=== PATIENT | male | born 1940 | race Caucasian/White ===

== ENCOUNTER 2018-12-23 21:12 | Observation (INO) | payer MEDICARE ==
[2018-12-23 22:14] LABS: Bilirubin Negative (Negative); Blood, Urine Negative (Negative); Clarity Clear (Clear); Glucose, Urine (Dipstick) Normal (Negative); Leukocyte Negative Leu/uL (Negative); Nitrite Negative (Negative); Protein, Urine (Dipstick) 10 mg/dL (Neg-Trace)
[2018-12-23 22:28] LABS: Mean Corpuscular Volume 85.6 fL (78.0-98.0)
[2018-12-23 22:32] LABS: ALT (SGPT) 56 U/L (8-55); AST (SGOT) 55 U/L (5-34); Albumin 3.6 g/dL (3.4-4.8); Alkaline Phosphatase 96 U/L (40-110); Anion Gap 11 mmol/L (10-20); BUN (Urea Nitrogen) 18 mg/dL (8.4-25.7); Bilirubin, Total 1.3 mg/dL (0.2-1.2); Calc. Creatinine Clearance 0 mL/min (70-130); Calcium 8.6 mg/dL (7.8-10.44); Carbon Dioxide 24 mmol/L (23-31); Chloride 99 mmol/L (98-107); Estimated GFR-MDRD 39; Globulin 3.2 g/dL (2.4-3.5); Glucose 127 mg/dL (83-110); Potassium 4.1 mmol/L (3.5-5.1); Protein, Total 6.8 g/dL (5.8-8.1); Sodium 130 mmol/L (136-145)
[2018-12-23 22:53] LABS: #Eosinphils 0.4 thou/uL (0.0-0.7); #Lymphocytes 0.4 thou/uL (1.20-3.40); #Monocytes 0.2 thou/uL (0.11-0.59); #Neutrophils 3.5 thou/uL (1.40-6.50); %Basophils 0.4 % (0.0-1.0); %Eosinophils 9.6 % (0.0-10.0); %Lymphocytes 9.3 % (21.0-51.0); %Monocytes 3.3 % (0.0-10.0); %Neutrophils 77.4 % (42.0-75.0); Hemoglobin 13.9 g/dL (14.0-18.0); Mean Corpuscular HGB CONC 33.6 g/dL (32.0-36.0); Mean Corpuscular Hemoglobin 28.7 pg (27.0-31.0); Mean Platelet Volume 8.6 fL (7.4-10.4); Platelet Count 118 thou/uL (130-400); Platelet Morphology Comment Appears Adequate; RBC Distribution Width 12.8 % (11.5-14.5); Red Blood Cell (RBC) Count 4.85 mill/uL (4.70-6.10); White Blood Cell (WBC) Count 4.5 thou/uL (4.8-10.8)
[2018-12-23 22:55] LABS: CKMB 1.6 ng/mL (0-6.6)
--- NOTE | 2018-12-23 23:44 | RAD ---
EXAM: ONE VIEW CHEST: 12/23/18 HISTORY: Dyspnea. COMPARISON: 12/20/18. FINDINGS: Loop recorder is noted, projecting in the left hemithorax. Normal cardiac silhouette. Pulmonary vesse ls are slightly prominent. Costophrenic angles are clear. Patchy interstitial opacities, predominantl y in the lung bases may represent edema or infiltrate. There is fullness of the right hilum which may be due to enlarged central pulmonary artery. Limited evaluation due to portable technique and sligh t leftward rotation. IMPRESSION: 1. Increased interstitial opacity in the lung bases which may be due to edema or infiltrate. 2. Right hilar fullness which may represent a prominent central pulmonary artery. POS: [facility]
[2018-12-24 01:30] LABS: Troponin I 0.033 ng/mL (< 0.028)
[2018-12-24] MEDS: Sodium Chloride 0.9% 1,000 ML IV SCH ×3 (02:57→22:49)
[2018-12-24 03:17] VITALS: BMI 27.8
[2018-12-24 05:04] LABS: INR-International Normal Ratio 1.2; PTT 35.7 SEC (22.9-36.1); Prothrombin Time 15.3 SEC (12.0-14.7)
[2018-12-24 05:21] LABS: ALT (SGPT) 54 U/L (8-55); AST (SGOT) 52 U/L (5-34); Albumin 3.3 g/dL (3.4-4.8); Alkaline Phosphatase 86 U/L (40-110); Anion Gap 12 mmol/L (10-20); BUN (Urea Nitrogen) 15 mg/dL (8.4-25.7); Bilirubin, Total 1.3 mg/dL (0.2-1.2); Calc. Creatinine Clearance 51 mL/min (70-130); Calcium 8.1 mg/dL (7.8-10.44); Carbon Dioxide 21 mmol/L (23-31); Chloride 102 mmol/L (98-107); Estimated GFR-MDRD 47; Globulin 2.9 g/dL (2.4-3.5); Glucose 109 mg/dL (83-110); Potassium 4.1 mmol/L (3.5-5.1); Protein, Total 6.2 g/dL (5.8-8.1); Sodium 131 mmol/L (136-145)
[2018-12-24 05:26] LABS: Troponin I 0.042 ng/mL (< 0.028)
--- NOTE | 2018-12-24 05:29 | HP ---
PRIMARY CARE PHYSICIAN: Dr. Teague. PRIMARY FLOOR RENOVATOR: Dr. Valiente. CHIEF COMPLAINT: Generalized weakness with fall. HISTORY OF PRESENT ILLNESS: The patient is a 78-year-old male, who presented to the emergency room with above complaints. Over the last 2 months, the patient has been feeling generally weak and fatigued. He gets lightheaded especially on standing. He also had intermittent vertigo without any aggravating factor. He has also lost his appetite with approximately 20-pound weight loss over the last 2 months. He was evaluated by Dr. Valiente and currently has a Holter monitor. He also gets fatigue on mild exertion. He was recently diagnosed with a viral illness. He was scheduled for a stress test with Dr. Valiente today. He was found on the floor by his son and was subsequently brought to the emergency room. No fever, chills, or focal neurologic deficit reported. PAST MEDICAL HISTORY: Reviewed with the patient and none. PAST SURGICAL HISTORY: Reviewed with the patient and none. ALLERGIES: THE PATIENT HAD ALLERGIC REACTION TO PENICILLIN IN THE LAST MONTH. CURRENT HOME MEDICATIONS: The patient is on Bactrim, started by his primary care physician. SOCIAL HISTORY: The patient currently lives at home with his family. His son, Messi, is the decision maker. He is full code. No alcohol, tobacco, or drug use. FAMILY HISTORY: Brother with colon cancer. REVIEW OF SYSTEMS: All other review of systems was reviewed and were found negative. PHYSICAL EXAMINATION: VITAL SIGNS: In the emergency room, showed temperature of 100 with respirations of 18, pulse rate of 88, blood pressure of 118/60 with O2 saturation of 98% on room air. GENERAL: A 78-year-old male in no apparent distress. Denies any pain. HEENT: Head, atraumatic and normocephalic. Sclerae anicteric. Moist mucous membrane. No oral lesion. NECK: Supple. No JVD appreciated. No carotid bruit. LUNGS: Clear to auscultation bilaterally with scattered rhonchi and rales especially at posterior base. No accessory muscle use. HEART: S1, S2 present. Regular rate and rhythm. No rubs or gallops. ABDOMEN: Soft, nontender. Bowel sounds present. EXTREMITIES: No edema or calf tenderness. NEUROLOGIC: Grossly nonfocal. Moves all 4 extremities. PSYCHIATRIC: Alert, awake, and oriented x3. SKIN: Warm and dry. LYMPH NODES: No palpable lymph nodes in the neck. PERIPHERAL VASCULAR: Radial pulses palpable bilaterally. MUSCULOSKELETAL: No joint swelling tenderness. LABORATORY FINDINGS: Folic acid 2.2, vitamin B12 497. CRP is 3.72. Sodium of 130. It was 133 three days ago. Creatinine 1.71. LFTs were normal three days ago. It showed bilirubin of 1.3. Troponin was 0.032. Urinalysis was negative for wbc, bacteria. Hemoglobin 13.9, hematocrit 41.5, platelet of 118. EKG by my review showed sinus rhythm with nonspecific ST-T wave changes in the inferior leads. CT scan of the brain and cervical spine was negative. Chest x-ray by my review showed questionable infiltrate at the lung base. IMPRESSION: 1. Generalized weakness with fatigue, multifactorial. 2. Acute kidney injury versus chronic kidney disease stage 3. Baseline creatinine unknown. 3. Abnormal LFTs of unclear etiology. 4. Elevated troponin of unclear etiology. The patient was scheduled for a stress test. 5. Recent diagnosis of arrhythmia. The patient has a Holter monitor. 6. Folic acid deficiency. 7. Hyponatremia. PLAN: The patient will be monitored on the telemetry unit. His orthostatic vitals were positive after arrival to the floor. His standing blood pressure was 90/52 from 127/60. We will continue IV fluids. Physical Therapy consultation. Consult Cardiology. Recheck LFTs in a.m. Recheck troponin later on. Replace folic acid. We will hold Bactrim due to renal insufficiency. Right upper quadrant ultrasound has been done, report pending at this time. We will keep him n.p.o. past midnight for Cardiology evaluation. We will start him on doxycycline along with Omnicef for possible infiltrate. Plan of care was discussed with the patient in detail. He stated understanding. Job ID: [id number] [facility]
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
--- NOTE | 2018-12-24 08:01 | ULT ---
PRELIMINARY REPORT/[facility]/EMERGENCY AFTER HOURS PROCEDURE: PROCEDURE INFORMATION: Exam: US Abdomen Limited, Right Upper Quadrant Exam date and time: 12/23/2018 11:50 PM Clinical history: 78 years old, male; Pain and abnormal findings; Abnormal lab test; Elevated liver e nzymes; Abdominal pain; Localized; Right upper quadrant (ruq) TECHNIQUE: Imaging protocol: Real-time ultrasound of the abdomen with image documentation. Examination was focus ed on the right upper quadrant. COMPARISON: No relevant prior studies available. FINDINGS: Liver: Partially obscured. No masses. Gallbladder: There is a 3 mm echogenic focus with sonographic reverberation artifact is compatible wi th cholesterolosis. No gallstones. There is no gallbladder wall thickening. Sonographic Eli's sign is reportedly negative. Common bile duct: No stones. No dilation. Pancreas: Partilly obscured. Right kidney: An anechoic parapelvic cyst measures 2.5 x 2 x 1.9 cm. 6 mm in maximal echogenic focus with posterior shadowing is compatible with a nonsobstructive stone. No mass. No hydronephrosis. IMPRESSION: No acute findings. Thank you for allowing us to participate in the care of your patient. Dictated and Authenticated by: Yolanda Wright MD 12/24/2018 12:52 AM Central Time ([place] & [place]) FINAL REPORT EMERGENCY AFTER HOURS GALLBLADDER ULTRASOUND: I agree with the preliminary report provided by [facility]. POS: [facility]
[2018-12-24] MEDS: Aspirin 81 mg Enteric Coated Tablet PO SCH (08:59)
[2018-12-24] MEDS: Doxycycline 100 MG CAP PO SCH ×2 (09:00→20:32)
[2018-12-24] MEDS: Folic Acid 1 MG TAB PO SCH ×2 (09:00→20:32)
[2018-12-24] MEDS: Cefdinir 300 MG CAP PO SCH ×2 (09:00→20:32)
[2018-12-24] MEDS: Senokot S 8.6-50 MG TAB PO SCH ×2 (09:00→20:35)
[2018-12-24] MEDS ORDERED: ADENOSINE 60 MG/20 ML VIAL ONE (09:05)
[2018-12-24] MEDS: Saccharomyces boulardii 250 MG CAP PO SCH (11:04)
--- NOTE | 2018-12-24 16:34 | NM ---
EXAM: NM Cardiac Stress W EF WF PROVIDED CLINICAL HISTORY: Chest pain, history of arrhythmia. COMPARISON: None FINDINGS: Pharmacologic myocardial perfusion stress test was performed after the intravenous ministration of ad enosine. No significant reversible defect is seen between the stress and resting acquisitions. The gated image s demonstrate normal ventricular wall thickening. There is mild hypokinesis involving the ventricular septum. Calculated left ventricular ejection fraction is 66%. IMPRESSION: 1. Normal myocardial perfusion study without evidence of a reversible defect seen to suggest ischemia . 2. Mild hypokinesis at the septum. 3. Normal LVEF of 66%.
--- NOTE | 2018-12-24 19:12 | PRG ---
DATE OF SERVICE: 12/24/2018 SUBJECTIVE: Mr. Amin was recently seen in the office complaining mostly weakness and fatigue. He came into the hospital yesterday, mostly getting complaining of weakness, fatigue, appeared to be somewhat dehydrated and volume depleted. He feels better now after receiving intravenous fluids. OBJECTIVE: VITAL SIGNS: His blood pressure earlier this morning is 100/54, then 130/69; pulse is 96 and sinus with PACs. LUNGS: Clear. CARDIAC: Normal S1. Normal S2. ABDOMEN: Soft and nontender. EXTREMITIES: No edema. LABORATORY AND DIAGNOSTIC DATA: Stress test shows normal ejection fraction, no ischemia. Troponin levels were indeterminate at 0.042. He appeared dehydrated with a creatinine 1.46 and sodium 131, also his bilirubin is 1.3 and AST is 52. ASSESSMENT: So far, no evidence of significant cardiac disease. Echocardiogram, carotid Dopplers are pending for tomorrow. No further recommendations at present time. Dr. Segura to see this weekend. No cardiac etiology of his symptoms has been found. He does appear to be dehydrated. He thinks he had a "virus recently." Job ID: [id number]
[2018-12-25 05:20] LABS: #Eosinphils 0.2 thou/uL (0.0-0.7); #Lymphocytes 0.8 thou/uL (1.20-3.40); #Monocytes 0.2 thou/uL (0.11-0.59); #Neutrophils 1.4 thou/uL (1.40-6.50); %Basophils 0.2 % (0.0-1.0); %Lymphocytes 30.5 % (21.0-51.0); %Monocytes 7.8 % (0.0-10.0); %Neutrophils 55.5 % (42.0-75.0); Hemoglobin 13.1 g/dL (14.0-18.0); Mean Corpuscular HGB CONC 34.2 g/dL (32.0-36.0); Mean Corpuscular Hemoglobin 28.9 pg (27.0-31.0); Mean Corpuscular Volume 84.4 fL (78.0-98.0); Mean Platelet Volume 8.3 fL (7.4-10.4); Platelet Count 108 thou/uL (130-400); RBC Distribution Width 12.9 % (11.5-14.5); Red Blood Cell (RBC) Count 4.54 mill/uL (4.70-6.10); White Blood Cell (WBC) Count 2.6 thou/uL (4.8-10.8)
[2018-12-25 05:57] LABS: ALT (SGPT) 55 U/L (8-55); AST (SGOT) 38 U/L (5-34); Albumin 3.2 g/dL (3.4-4.8); Alkaline Phosphatase 83 U/L (40-110); Anion Gap 11 mmol/L (10-20); BUN (Urea Nitrogen) 14 mg/dL (8.4-25.7); Bilirubin, Total 1.4 mg/dL (0.2-1.2); Calc. Creatinine Clearance 67 mL/min (70-130); Calcium 8.2 mg/dL (7.8-10.44); Carbon Dioxide 21 mmol/L (23-31); Chloride 106 mmol/L (98-107); Estimated GFR-MDRD 63; Globulin 2.9 g/dL (2.4-3.5); Glucose 122 mg/dL (83-110); Potassium 4.2 mmol/L (3.5-5.1); Protein, Total 6.1 g/dL (5.8-8.1); Sodium 134 mmol/L (136-145)
[2018-12-25] MEDS: Sodium Chloride 0.9% 1,000 ML IV SCH (06:04)
--- NOTE | 2018-12-25 08:40 | ULT ---
BILATERAL CAROTID DUPLEX ULTRASOUND: HISTORY: Dizziness TECHNIQUE: Grayscale, color-flow and spectral Doppler ultrasound imaging of the extracranial carotid artery syst ems and vertebral arteries was performed bilaterally. FINDINGS: There is moderate atherosclerotic plaque involving the right common carotid artery, right carotid bul b and proximal right internal carotid artery. There is a focal area of stenosis involving the proximal right internal carotid artery. There is mild diffuse atherosclerotic plaque involving the le ft common carotid artery and proximal left internal carotid artery. The peak systolic velocity in the right ICA measures 164.1 cm/s. The peak systolic velocity in the r ight CCA measures 119.4 cm/s. The peak systolic velocity in the left ICA measures 83.9 cm/s. The peak systolic velocity in the l eft CCA measures 106.3 cm/s. The right IC/CC ration is1.37. The left IC/CC ratio is 0.79. Vertebral flow: antegrade, bilaterally. . IMPRESSION: 1. Moderate (50-69%) stenosis of right proximal internal carotid artery. 2. No hemodynamically significant stenosis of the left internal carotid artery.
[2018-12-25] MEDS: Aspirin 81 mg Enteric Coated Tablet PO SCH (09:04)
[2018-12-25] MEDS: Doxycycline 100 MG CAP PO SCH (09:04)
[2018-12-25] MEDS: Senokot S 8.6-50 MG TAB PO SCH (09:04)
[2018-12-25] MEDS: Saccharomyces boulardii 250 MG CAP PO SCH (09:04)
[2018-12-25] MEDS: Cefdinir 300 MG CAP PO SCH (09:04)
[2018-12-25] MEDS: Folic Acid 1 MG TAB PO SCH (09:04)
[2018-12-25 11:35] VITALS: TEMP 97.5
[2018-12-25 13:37] VITALS: BP 135/70
--- NOTE | 2018-12-25 14:42 | DIS ---
DATE OF ADMISSION: 12/24/2018 DATE OF DISCHARGE: 12/25/2018 DISCHARGE DIAGNOSES: 1. Acute kidney injury secondary to dehydration, improved. 2. Chronic kidney disease, stage 3. 3. Generalized weakness secondary to acute kidney injury. 4. Folic acid deficiency. 5. Hyponatremia, mild. 6. Moderate stenosis of the right internal carotid artery. CONSULTATIONS: Dr. Valiente with Cardiology Service. PERTINENT LABORATORY AND X-RAY FINDINGS: Sodium ranged between 130 to 134. Creatinine ranged between 1.12 to 1.71. Estimated GFR ranged between 39 to 63. Total bilirubin ranged between 1.3 to 1.4. AST ranged between 38 to 55, ALT ranged between 54 to 56. CRP 3.72. BNP 59. TSH 1.37. Serum cortisol level 13.4. CBC showed a white blood cell count ranging between 2.6 to 4.5, hemoglobin ranged between 13.1 to 13.9. Blood cultures x2 dated 12/24/2018, showed no growth to date. Abdominal ultrasound dated 12/23/2018, showed no acute process. Portable chest x-ray dated 12/23/2018, showed right hilar fullness of unclear significance. CT of the cervical spine dated 12/24/2018, showed no acute process. CT of the brain without contrast dated 12/24/2018, showed no acute intracranial process. Cardiolite stress test dated 12/24/2018, showed no evidence for reversible or fixed ischemia with calculated ejection fraction of 66%. Mild hypokinesis at the septum. Carotid Doppler study dated 12/25/2018, showed a moderate 50% to 69% stenosis of the right proximal internal carotid artery. No hemodynamically significant stenosis of the left internal carotid artery. HOSPITAL COURSE: The patient was observed on the telemetry unit after initially presenting with dizziness and fatigue. The patient underwent extensive evaluation with multiple imaging studies and laboratory evaluation showing evidence of acute kidney injury, likely due to volume depletion and dehydration. The patient with hyponatremia and improved sodium values in addition to creatinine with IV fluid hydration. The patient was also noted with mild orthostatic changes on vital sign assessment, improved with IV fluids. The patient underwent extensive cardiac evaluation showing no evidence of reversible or fixed ischemia with calculated ejection fraction of 66%. The patient was evaluated by the Cardiology Service without specific recommendations for adjustment to his current medication regimen. Likely patient's presentation multifactorial including volume depletion. The patient was cautioned regarding the need for adequate hydration. Telemetry monitoring showed no acute arrhythmia or dysrhythmia. The patient overall remained clinically stable. I have examined the patient at the time of discharge and discussed followup instructions. The patient verbalized understanding and in agreement, and ready for discharge on 12/25/2018. DISCHARGE MEDICATIONS: 1. Enteric-coated aspirin 81 mg p.o. daily. 2. Folic acid 1 mg p.o. b.i.d. FOLLOWUP: The patient may follow up with his primary care provider, Dr. Chase Mcnally within 7 days of discharge. CONDITION ON DISCHARGE: Stable. ACTIVITY: Ad-jakub. DIET: Regular. CODE STATUS: Full. DISPOSITION: Home on 12/25/2018. Job ID: [id number]
== END 2018-12-25 13:21 | disposition home or self-care (01) ==
LOC: ERS 21:12 → 2SW 12-24 00:11
PROVIDERS: ADMIT Internal Medicine; ATTEND Internal Medicine
DX: E86.0 Dehydration (principal); N17.9 Acute kidney failure, unspecified; E87.1 Hypo-osmolality and hyponatremia; I12.9 Hypertensive chronic kidney disease with stage 1 through stage 4 chronic kidney disease, or unspecified chronic kidney disease; N18.3 Chronic kidney disease, stage 3 (moderate); I49.9 Cardiac arrhythmia, unspecified; I49.1 Atrial premature depolarization; E78.00 Pure hypercholesterolemia, unspecified; R79.89 Other specified abnormal findings of blood chemistry; R53.82 Chronic fatigue, unspecified; Z88.0 Allergy status to penicillin
CPT/HCPCS: 70450; 71045; 72125; 76705; 78452; 80053 ×2; 81003; 82533; 82553; 83605; 83690; 83880; 84484 ×3; 85025; 85610; 85730; 86140; 87040; 93005; 93017; 93306; 93880; 96360; 96361; 97116; 97139; 97530; 99285; A9500; 36415; 36416; 84443; G0378; J0153

== ENCOUNTER 2019-01-03 10:03 | Emergency (ER) | payer MEDICARE ==
[2019-01-03] MEDS ORDERED: Adacel (T-DAP) 0.5 ML SYRINGE ONE (10:38)
[2019-01-03] MEDS ORDERED: Lidocaine 1% w/Epinephrine 1:100K 20 ML VIAL ONE (10:38)
[2019-01-03 10:55] LABS: INR-International Normal Ratio 1.1; Prothrombin Time 13.7 SEC (12.0-14.7)
[2019-01-03 10:56] LABS: PTT 30.4 SEC (22.9-36.1)
[2019-01-03 10:59] LABS: #Lymphocytes 0.6 thou/uL (1.20-3.40); #Monocytes 0.7 thou/uL (0.11-0.59); #Neutrophils 4.8 thou/uL (1.40-6.50); %Basophils 0.2 % (0.0-1.0); %Eosinophils 0.5 % (0.0-10.0); %Lymphocytes 9.3 % (21.0-51.0); %Monocytes 11.1 % (0.0-10.0); %Neutrophils 78.8 % (42.0-75.0); Hemoglobin 13.7 g/dL (14.0-18.0); Mean Corpuscular HGB CONC 32.8 g/dL (32.0-36.0); Mean Corpuscular Hemoglobin 28.9 pg (27.0-31.0); Mean Corpuscular Volume 87.9 fL (78.0-98.0); Mean Platelet Volume 8.1 fL (7.4-10.4); Platelet Count 152 thou/uL (130-400); Red Blood Cell (RBC) Count 4.73 mill/uL (4.70-6.10); White Blood Cell (WBC) Count 6.1 thou/uL (4.8-10.8)
[2019-01-03 11:21] LABS: ALT (SGPT) 52 U/L (8-55); AST (SGOT) 30 U/L (5-34); Albumin 3.8 g/dL (3.4-4.8); Alkaline Phosphatase 106 U/L (40-110); Anion Gap 14 mmol/L (10-20); BUN (Urea Nitrogen) 20 mg/dL (8.4-25.7); Calc. Creatinine Clearance 0 mL/min (70-130); Calcium 9.2 mg/dL (7.8-10.44); Carbon Dioxide 23 mmol/L (23-31); Chloride 102 mmol/L (98-107); Estimated GFR-MDRD 65; Globulin 3.2 g/dL (2.4-3.5); Glucose 136 mg/dL (83-110); Potassium 4.7 mmol/L (3.5-5.1); Sodium 134 mmol/L (136-145)
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
[2019-01-03] MEDS ORDERED: Iopamidol 370 76% 100 ML VIAL ONE (13:43)
== END 2019-01-03 14:10 | disposition home or self-care (01) ==
LOC: ERS 10:03
DX: S06.0X0A Concussion without loss of consciousness, initial encounter (principal); S22.41XA Multiple fractures of ribs, right side, initial encounter for closed fracture; S01.111A Laceration without foreign body of right eyelid and periocular area, initial encounter; V43.52XA Car driver injured in collision with other type car in traffic accident, initial encounter
CPT/HCPCS: 12013; 36415; 70450; 71260; 72125; 74177; 80053; 85025; 85610; 85730; 90471; 90715; J2001; Q9967

== ENCOUNTER 2022-04-04 15:42 | Inpatient (IN) | payer MEDICARE ==
[~2022-04-04 15:42] MED LIST: Heparin 10,000 UNITS/ 10 ML VIAL ONE
[2022-04-04] MEDS ORDERED: Ondansetron ODT 4 MG TAB PO PRN (18:18)
[2022-04-04] MEDS ORDERED: Senokot S 8.6-50 MG TAB PO PRN (18:18)
[2022-04-04] MEDS ORDERED: Guaifenesin DM 100-10/5 ML UDCUP PO PRN (18:18)
[2022-04-04] MEDS ORDERED: Bisacodyl 5 MG TAB PO PRN (18:18)
[2022-04-04] MEDS ORDERED: Ondansetron PF 4 MG/2 ML Vial IVP PRN (18:18)
[2022-04-04] MEDS ORDERED: Acetaminophen 650 MG Suppository PR PRN (18:18)
[2022-04-04] MEDS ORDERED: Acetaminophen 325 MG TAB PO PRN (18:18)
[2022-04-04] MEDS ORDERED: Bisacodyl 10 MG SUPP PR PRN (18:18)
[2022-04-04] MEDS ORDERED: HumaLOG 300 UNITS/3 ML VIAL SC PRN ×2 (18:27)
[2022-04-04] MEDS ORDERED: Dextrose 5% in Water 1,000 ML IV PRN (18:27)
[2022-04-04] MEDS ORDERED: Dextrose 50% Abboject 50 ML SYRINGE SLOW IVP PRN (18:27)
[2022-04-04] MEDS ORDERED: Sodium Chloride 0.9% 1,000 ML IV SCH (18:30)
[2022-04-04] MEDS ORDERED: hydrALAZINE 20 MG/ML VIAL SLOW IVP PRN (19:38)
[2022-04-04] MEDS: Metoprolol Tartrate 25 MG TAB PO SCH (20:31)
[2022-04-05 01:57] LABS: Bacteria/HPF None Seen HPF (None Seen); Bilirubin Negative (Negative); Blood, Urine Trace (Negative); CAUTI Indications for Culture Dysuria,urgency,freq; Clarity Clear (Clear); Glucose, Urine (Dipstick) Normal (Negative); Ketone, Urine Negative (Negative); Leukocyte Negative Leu/uL (Negative); Nitrite Negative (Negative); Protein, Urine (Dipstick) Negative (Neg-Trace); RBC/HPF 0-3 HPF (0-3); Specific Gravity, Urine 1.012 (1.002-1.036); Squamous Epithelial 0-3 HPF (0-3); WBC/HPF 0-3 HPF (0-3)
[2022-04-05 01:59] LABS: Urine Culture Reflex No No
[2022-04-05 05:00] LABS: Hemoglobin A1c 4.8 % (4.0-6.0)
[2022-04-05 05:27] LABS: Anion Gap 11 mmol/L (10-20); BUN (Urea Nitrogen) 11 mg/dL (8.4-25.7); Calc. Creatinine Clearance 72 mL/min (70-130); Calcium 9.2 mg/dL (7.8-10.44); Carbon Dioxide 25 mmol/L (23-31); Cardiac Risk 2.5 (Less than 4.5); Chloride 102 mmol/L (98-107); Cholesterol 130 mg/dl (< 200 Desired); Estimated GFR 87; Glucose 129 mg/dL (83-110); HDL Cholesterol 51 mg/dL (>60 Neg Risk); LDL Cholesterol, Calculated 72 mg/dL; Potassium 4.1 mmol/L (3.5-5.1); Sodium 134 mmol/L (136-145); Triglycerides 36 mg/dL (Less than 150)
[2022-04-05] MEDS: Metoprolol Tartrate 25 MG TAB PO SCH ×2 (10:14→21:11)
[2022-04-05] MEDS ORDERED: Losartan 25 MG TAB PO SCH (15:00)
[2022-04-05] MEDS: Sucralfate 1 GM TAB PO SCH ×2 (17:25→21:10)
[2022-04-05] MEDS ORDERED: Dicyclomine 10 MG CAP PO PRN (19:24)
[2022-04-05] MEDS: Pantoprazole 40 MG VIAL IVP SCH (21:11)
[2022-04-06 05:31] LABS: #Lymphocytes 0.9 thou/uL (1.20-3.40); #Monocytes 1.6 thou/uL (0.11-0.59); #Neutrophils 11.1 thou/uL (1.40-6.50); %Basophils 0.2 % (0.0-1.0); %Eosinophils 0.2 % (0.0-10.0); %Lymphocytes 6.3 % (21.0-51.0); %Monocytes 11.5 % (0.0-10.0); %Neutrophils 81.8 % (42.0-75.0); Hemoglobin 15.5 g/dL (14.0-18.0); Mean Corpuscular Hemoglobin 28.9 pg (27.0-31.0); Mean Corpuscular Volume 87.6 fl (78.0-98.0); Mean Platelet Volume 8.9 fL (7.4-10.4); Platelet Count 182 10x3/uL (130-400); RBC Distribution Width 12.2 % (11.5-14.5); Red Blood Cell (RBC) Count 5.37 mill/uL (4.70-6.10); White Blood Cell (WBC) Count 13.5 10x3/uL (4.8-10.8)
[2022-04-06 05:53] LABS: ALT (SGPT) 11 U/L (8-55); AST (SGOT) 13 U/L (5-34); Albumin 3.8 g/dL (3.4-4.8); Alkaline Phosphatase 67 U/L (40-110); Anion Gap 12 mmol/L (10-20); BUN (Urea Nitrogen) 11 mg/dL (8.4-25.7); Bilirubin, Total 1.9 mg/dL (0.2-1.2); Calc. Creatinine Clearance 62 mL/min (70-130); Calcium 9.3 mg/dL (7.8-10.44); Carbon Dioxide 25 mmol/L (23-31); Chloride 100 mmol/L (98-107); Estimated GFR 77; Globulin 3.4 g/dL (2.4-3.5); Glucose 155 mg/dL (83-110); Magnesium 1.9 mg/dL (1.6-2.6); Phosphorus 2.1 mg/dL (2.3-4.7); Potassium 3.9 mmol/L (3.5-5.1); Protein, Total 7.2 g/dL (5.8-8.1); Sodium 133 mmol/L (136-145)
[2022-04-06] MEDS ORDERED: ADENOSINE 60 MG/20 ML VIAL ONE (08:19)
[2022-04-06] MEDS: Sucralfate 1 GM TAB PO SCH ×4 (11:47→21:20)
[2022-04-06] MEDS: Metoprolol Tartrate 25 MG TAB PO SCH ×2 (11:52→21:19)
[2022-04-06] MEDS: Pantoprazole 40 MG VIAL IVP SCH ×2 (11:52→21:19)
[2022-04-06] MEDS: Losartan 25 MG TAB PO SCH (11:53)
[2022-04-07 05:22] LABS: #Eosinphils 0.1 thou/uL (0.0-0.7); #Neutrophils 7.9 thou/uL (1.40-6.50); %Basophils 0.1 % (0.0-1.0); %Eosinophils 0.6 % (0.0-10.0); %Lymphocytes 10.4 % (21.0-51.0); %Monocytes 10.1 % (0.0-10.0); %Neutrophils 78.8 % (42.0-75.0); Hemoglobin 14.7 g/dL (14.0-18.0); Mean Corpuscular Hemoglobin 30.8 pg (27.0-31.0); Mean Platelet Volume 8.8 fL (7.4-10.4); Platelet Count 147 10x3/uL (130-400); RBC Distribution Width 12.1 % (11.5-14.5); Red Blood Cell (RBC) Count 4.78 mill/uL (4.70-6.10); White Blood Cell (WBC) Count 10.1 10x3/uL (4.8-10.8)
[2022-04-07 05:40] LABS: Anion Gap 9 mmol/L (10-20); BUN (Urea Nitrogen) 17 mg/dL (8.4-25.7); Calc. Creatinine Clearance 59 mL/min (70-130); Calcium 9.2 mg/dL (7.8-10.44); Carbon Dioxide 29 mmol/L (23-31); Chloride 100 mmol/L (98-107); Estimated GFR 73; Glucose 113 mg/dL (83-110); Sodium 134 mmol/L (136-145)
[2022-04-07] MEDS: Metoprolol Tartrate 25 MG TAB PO SCH ×2 (08:57→22:04)
[2022-04-07] MEDS: Losartan 25 MG TAB PO SCH (08:57)
[2022-04-07] MEDS ORDERED: Lidocaine 1% PF 5 ML VIAL ONE (11:39)
[2022-04-07] MEDS ORDERED: PHENYLEPHRINE-NS 100 MCG/ML 10 ML SYRINGE ONE (11:39)
[2022-04-07] MEDS ORDERED: PROPOFOL 200 MG/20 ML VIAL ONE (11:39)
[2022-04-07] MEDS: Pantoprazole 40 MG VIAL IVP SCH ×2 (13:53→22:04)
[2022-04-07] MEDS: Melatonin 3 MG TAB PO PRN (22:05)
[2022-04-08 05:00] LABS: #Eosinphils 0.2 thou/uL (0.0-0.7); #Neutrophils 6.6 thou/uL (1.40-6.50); %Basophils 0.2 % (0.0-1.0); %Lymphocytes 11.8 % (21.0-51.0); %Monocytes 10.8 % (0.0-10.0); %Neutrophils 75.2 % (42.0-75.0); Hemoglobin 13.8 g/dL (14.0-18.0); Mean Corpuscular HGB CONC 31.9 g/dL (32.0-36.0); Mean Corpuscular Hemoglobin 28.1 pg (27.0-31.0); Mean Corpuscular Volume 87.9 fl (78.0-98.0); Mean Platelet Volume 8.8 fL (7.4-10.4); Platelet Count 173 10x3/uL (130-400); RBC Distribution Width 12.1 % (11.5-14.5); White Blood Cell (WBC) Count 8.8 10x3/uL (4.8-10.8)
[2022-04-08 05:11] LABS: Anion Gap 10 mmol/L (10-20); BUN (Urea Nitrogen) 23 mg/dL (8.4-25.7); Calc. Creatinine Clearance 55 mL/min (70-130); Calcium 9.2 mg/dL (7.8-10.44); Carbon Dioxide 26 mmol/L (23-31); Chloride 101 mmol/L (98-107); Estimated GFR 71; Glucose 113 mg/dL (83-110); Sodium 133 mmol/L (136-145)
[2022-04-08] MEDS ORDERED: PHENYLEPHRINE-NS 100 MCG/ML 10 ML SYRINGE ONE ×2 (09:35→09:54)
[2022-04-08] MEDS ORDERED: Lidocaine 1% PF 5 ML VIAL ONE (09:35)
[2022-04-08] MEDS ORDERED: PROPOFOL 200 MG/20 ML VIAL ONE (09:35)
[2022-04-08] MEDS ORDERED: Ondansetron HCl/PF 4 MG/2 ML Vial IVP PRN (09:59)
[2022-04-08] MEDS ORDERED: Promethazine HCl 25 MG/ML VIAL IM PRN (09:59)
[2022-04-08] MEDS: Losartan 25 MG TAB PO SCH (12:58)
[2022-04-08] MEDS: Pantoprazole 40 MG VIAL IVP SCH ×2 (12:58→21:41)
[2022-04-08] MEDS: Metoprolol Tartrate 25 MG TAB PO SCH (12:58)
[2022-04-08] MEDS: Melatonin 3 MG TAB PO PRN (21:41)
[2022-04-09 05:04] LABS: #Basophils 0.1 thou/uL (0.0-0.2); #Eosinphils 0.2 thou/uL (0.0-0.7); #Lymphocytes 0.7 thou/uL (1.20-3.40); #Monocytes 0.7 thou/uL (0.11-0.59); #Neutrophils 6.2 thou/uL (1.40-6.50); %Basophils 0.7 % (0.0-1.0); %Eosinophils 2.3 % (0.0-10.0); %Lymphocytes 8.5 % (21.0-51.0); %Monocytes 8.8 % (0.0-10.0); %Neutrophils 79.6 % (42.0-75.0); Hemoglobin 14.3 g/dL (14.0-18.0); Mean Corpuscular HGB CONC 32.8 g/dL (32.0-36.0); Mean Corpuscular Volume 88.3 fl (78.0-98.0); Mean Platelet Volume 9.1 fL (7.4-10.4); Platelet Count 176 10x3/uL (130-400); RBC Distribution Width 12.1 % (11.5-14.5); Red Blood Cell (RBC) Count 4.95 mill/uL (4.70-6.10); White Blood Cell (WBC) Count 7.8 10x3/uL (4.8-10.8)
[2022-04-09 05:15] LABS: Anion Gap 12 mmol/L (10-20); BUN (Urea Nitrogen) 19 mg/dL (8.4-25.7); Calc. Creatinine Clearance 57 mL/min (70-130); Calcium 8.8 mg/dL (7.8-10.44); Carbon Dioxide 25 mmol/L (23-31); Chloride 100 mmol/L (98-107); Estimated GFR 74; Glucose 125 mg/dL (83-110); Potassium 3.9 mmol/L (3.5-5.1); Sodium 133 mmol/L (136-145)
[2022-04-09] MEDS: Pantoprazole 40 MG VIAL IVP SCH (09:15)
[2022-04-09] MEDS: Metoclopramide 10 MG/10 ML UDCUP PO SCH ×2 (16:55→20:57)
[2022-04-09] MEDS: Melatonin 3 MG TAB PO PRN (20:57)
[2022-04-10 05:20] LABS: #Eosinphils 0.3 thou/uL (0.0-0.7); #Lymphocytes 1.1 thou/uL (1.20-3.40); #Neutrophils 5.8 thou/uL (1.40-6.50); %Basophils 0.2 % (0.0-1.0); %Eosinophils 3.2 % (0.0-10.0); %Lymphocytes 13.3 % (21.0-51.0); %Monocytes 12.6 % (0.0-10.0); %Neutrophils 70.8 % (42.0-75.0); Hemoglobin 12.9 g/dL (14.0-18.0); Mean Corpuscular HGB CONC 32.7 g/dL (32.0-36.0); Mean Corpuscular Hemoglobin 28.9 pg (27.0-31.0); Mean Corpuscular Volume 88.1 fl (78.0-98.0); Mean Platelet Volume 8.5 fL (7.4-10.4); Platelet Count 197 10x3/uL (130-400); Red Blood Cell (RBC) Count 4.48 mill/uL (4.70-6.10); White Blood Cell (WBC) Count 8.2 10x3/uL (4.8-10.8)
[2022-04-10 05:54] LABS: Anion Gap 12 mmol/L (10-20); BUN (Urea Nitrogen) 34 mg/dL (8.4-25.7); Calc. Creatinine Clearance 32 mL/min (70-130); Calcium 8.6 mg/dL (7.8-10.44); Carbon Dioxide 26 mmol/L (23-31); Chloride 99 mmol/L (98-107); Estimated GFR 38; Glucose 124 mg/dL (83-110); Potassium 3.7 mmol/L (3.5-5.1); Sodium 133 mmol/L (136-145)
[2022-04-10 07:41] VITALS: BMI 21.9
[2022-04-10 08:47] LABS: Anion Gap 13 mmol/L (10-20); BUN (Urea Nitrogen) 34 mg/dL (8.4-25.7); Calc. Creatinine Clearance 35 mL/min (70-130); Calcium 8.6 mg/dL (7.8-10.44); Carbon Dioxide 23 mmol/L (23-31); Chloride 100 mmol/L (98-107); Estimated GFR 41; Glucose 138 mg/dL (83-110); Potassium 3.8 mmol/L (3.5-5.1); Sodium 132 mmol/L (136-145)
[2022-04-10] MEDS: Metoclopramide 10 MG/10 ML UDCUP PO SCH ×4 (09:30→21:24)
[2022-04-10] MEDS: Sodium Chloride 0.9% 1,000 ML IV SCH (13:39)
[2022-04-10 18:39] LABS: Albumin 3.5 g/dL (3.4-4.8); Anion Gap 12 mmol/L (10-20); BUN (Urea Nitrogen) 33 mg/dL (8.4-25.7); BUN/Creatinine Ratio 22.15; Calc. Creatinine Clearance 39 mL/min (70-130); Calcium 9.1 mg/dL (7.8-10.44); Carbon Dioxide 26 mmol/L (23-31); Chloride 100 mmol/L (98-107); Estimated GFR 47; Glucose 135 mg/dL (83-110); Phosphorus 2.9 mg/dL (2.3-4.7); Potassium 4.2 mmol/L (3.5-5.1); Sodium 134 mmol/L (136-145)
[2022-04-10] MEDS: Melatonin 3 MG TAB PO PRN (21:24)
[2022-04-11 00:24] LABS: Bacteria/HPF None Seen HPF (None Seen); Bilirubin Negative (Negative); Blood, Urine Negative (Negative); Clarity Clear (Clear); Glucose, Urine (Dipstick) Normal (Negative); Ketone, Urine Negative (Negative); Leukocyte Negative Leu/uL (Negative); Nitrite Negative (Negative); Protein, Urine (Dipstick) Negative (Neg-Trace); RBC/HPF 0-3 HPF (0-3); Squamous Epithelial None Seen HPF (0-3); Urobilinogen Normal mg/dL (Less than 2); WBC/HPF 0-3 HPF (0-3); pH, Urine 5.5 (5.0-9.0)
[2022-04-11 00:44] LABS: Creatinine, Urine 45.27 mg/dL (63-166)
[2022-04-11] MEDS: Sodium Chloride 0.9% 1,000 ML IV SCH (04:19)
[2022-04-11 04:35] LABS: #Basophils 0.1 thou/uL (0.0-0.2); #Eosinphils 0.2 thou/uL (0.0-0.7); #Lymphocytes 0.8 thou/uL (1.20-3.40); #Neutrophils 5.6 thou/uL (1.40-6.50); %Basophils 0.7 % (0.0-1.0); %Eosinophils 3.1 % (0.0-10.0); %Lymphocytes 10.7 % (21.0-51.0); %Neutrophils 72.5 % (42.0-75.0); Hemoglobin 12.9 g/dL (14.0-18.0); Mean Corpuscular HGB CONC 32.5 g/dL (32.0-36.0); Mean Corpuscular Hemoglobin 28.8 pg (27.0-31.0); Mean Corpuscular Volume 88.5 fl (78.0-98.0); Mean Platelet Volume 8.3 fL (7.4-10.4); Platelet Count 214 10x3/uL (130-400); RBC Distribution Width 11.9 % (11.5-14.5); White Blood Cell (WBC) Count 7.7 10x3/uL (4.8-10.8)
[2022-04-11 04:49] LABS: Anion Gap 12 mmol/L (10-20); BUN (Urea Nitrogen) 25 mg/dL (8.4-25.7); Calc. Creatinine Clearance 45 mL/min (70-130); Calcium 8.7 mg/dL (7.8-10.44); Carbon Dioxide 25 mmol/L (23-31); Chloride 103 mmol/L (98-107); Estimated GFR 55; Glucose 124 mg/dL (83-110); Potassium 4.2 mmol/L (3.5-5.1); Sodium 136 mmol/L (136-145)
[2022-04-11] MEDS: Metoclopramide 10 MG/10 ML UDCUP PO SCH ×2 (10:27)
[2022-04-11 13:58] VITALS: BP 92/56; TEMP 97.4
== END 2022-04-11 14:55 | disposition home or self-care (01) | DRG 392 ==
LOC: 2NO 17:37 → OBSVTOIN 04-07 13:32
PROVIDERS: ADMIT Internal Medicine; ATTEND Internal Medicine
PROC: 0DJ08ZZ Inspection of Upper Intestinal Tract, Via Natural or Artificial Opening Endoscopic (ICD-10-PCS; principal; 2022-04-07)
PROC: 0DB68ZX Excision of Stomach, Via Natural or Artificial Opening Endoscopic, Diagnostic (ICD-10-PCS; 2022-04-08)
DX: K31.84 Gastroparesis (principal); E87.1 Hypo-osmolality and hyponatremia; I50.32 Chronic diastolic (congestive) heart failure; N17.9 Acute kidney failure, unspecified; I13.0 Hypertensive heart and chronic kidney disease with heart failure and stage 1 through stage 4 chronic kidney disease, or unspecified chronic kidney disease; I47.20 Ventricular tachycardia, unspecified; I48.91 Unspecified atrial fibrillation; R73.9 Hyperglycemia, unspecified; K21.9 Gastro-esophageal reflux disease without esophagitis; K57.10 Diverticulosis of small intestine without perforation or abscess without bleeding; N18.30 Chronic kidney disease, stage 3 unspecified; I95.9 Hypotension, unspecified; K26.9 Duodenal ulcer, unspecified as acute or chronic, without hemorrhage or perforation; E86.9 Volume depletion, unspecified; Z79.82 Long term (current) use of aspirin; Z88.0 Allergy status to penicillin; Z79.899 Other long term (current) drug therapy; Z86.73 Personal history of transient ischemic attack (TIA), and cerebral infarction without residual deficits; Z82.49 Family history of ischemic heart disease and other diseases of the circulatory system; Z20.822 Contact with and (suspected) exposure to COVID-19
CPT/HCPCS: 36415; 36416; 76705; 76770; 78264; 78452; 80048; 80053; 80061; 81001; 82570; 83036; 83690; 83735; 83930; 83935; 84100; 84300; 84443; 84484; 85025; 88305; 88341; 88342; 93005; 93010; 93017; 93306; 96372; 96374; 96376; A9500; A9541; C9113; G0378; J0153; J1650; J2704; J7050; U0003; U0005